=== PATIENT | male | born 1965 | race Caucasian/White ===

== ENCOUNTER 2021-03-19 18:38 | Emergency (ER) | payer OTHER ==
[~2021-03-19] VITALS: Ht 172.7 cm; Wt 71.2 kg
[2021-03-19 18:43] VITALS: BP_SYST 148
[2021-03-19] MEDS ORDERED: KETOROLAC TROMETHAMINE 30 MG VIAL IM ONE (20:15)
[2021-03-19] MEDS ORDERED: LIDOCAINE PATCH 5% 1 EA TP ONE ×2 (20:15→21:15)
[2021-03-19] MEDS ORDERED: methocarbamoL 500 MG TABLET PO ONE (20:15)
[2021-03-19] MEDS ORDERED: METH-634 PO (21:12)
[2021-03-19] MEDS ORDERED: LIDO1ADH71 TP (21:12)
[2021-03-19] MEDS ORDERED: IBUP-1969 PO (21:12)
[2021-03-19 21:34] VITALS: BP_SYST 140
== END 2021-03-19 21:33 | disposition home or self-care (01) ==
LOC: SED 18:38
DX: S20.211A Contusion of right front wall of thorax, initial encounter (principal); S40.011A Contusion of right shoulder, initial encounter; Z79.899 Other long term (current) drug therapy; V49.49XA Driver injured in collision with other motor vehicles in traffic accident, initial encounter; Y93.89 Activity, other specified; Y92.89 Other specified places as the place of occurrence of the external cause; Y99.8 Other external cause status
CPT/HCPCS: 71045; 73030; 96372; 99284; J1885